=== PATIENT | male | born 1960 | race African-American/Black ===

== ENCOUNTER 2025-07-09 11:01 | Outpatient (AMB) | payer MEDICARE, MEDICAID, SELFPAY ==
[2025-07-09 11:03] VITALS: BP 100/62; PULSE 79; O2SAT 93; BMI 26.3
--- NOTE | 2025-07-09 11:03 | HO.NEPHOV_ITS ---
Vital Signs 07/09/25 11:03 Height 6 ft 1 in Weight 199 lb BMI 26.3 BP 100/62 Blood Pressure Location Lt brachial Position Sitting Pulse 79 Pulse Source Pulse Oximeter Pulse Oximetry (%) 93 Oxygen Delivery Method Room Air Intake Visit Reasons: ENP: [employer] Required: No Accompanied by: Self / Same As Patient Allergies No Known Allergies Allergy (Verified 07/09/25 11:07) Medication List - Last Reconciled 07/09/25 by Juan F Andre MD acetaminophen 1,000 mg PO Q6H PRN albuterol sulfate 90 mcg/actuation inhalation amlodipine 10 mg PO DAILY budesonide-formoterol 160-4.5 mcg/actuation inhalation cyclobenzaprine 5 mg PO TID PRN fluticasone propion-salmeterol 250-50 mcg/dose (Wixela Inhub) 1 ea inhalation BID gabapentin 600 mg PO BID HPI Comments Details: Brian is a 65 year old male presenting [facility]. His recent creatinine level was elevated at 2.17 in May 2025, corresponding eGFR of 33 ml/mt. This issue has been ongoing for at least two years, with a prior referral that the patient accidentally disregarded. He has a history of hypertension for many years, which he states is well- controlled. Other chronic conditions include COPD and sleep apnea. He is borderline diabetic but not on medication. 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 The patient was diagnosed with hepatitis C approximately 24-25 years ago, which has not been treated. He has a history of heroin and cocaine use, with his last use being about three years ago, and he is currently in a methadone program. He was a smoker since his teenage years, smoking about half a pack per day, but quit approximately 7-8 days ago. He took meloxicam 15 mg daily for about a year following his knee surgery but was taken off it due to his kidney function, and he no longer takes ibuprofen. His diet is reportedly unhealthy, with minimal vegetable intake. In terms of urologic symptoms, he reports nocturia, urinating four to five times some nights. He also notes intermittent swelling in his legs at the end of the day, which resolves with elevation. His mother was diabetic. His brother, who was also diabetic, had a blood cancer and required dialysis for kidney failure before passing away. He reports no other family history of kidney problems. Results - Lab results discussed: Creatinine was 2.17 in May, [facility] Medical History (Updated 07/09/25 @ 11:40 by Juan F Andre MD) Essential hypertension Gout Surgical History (Updated 07/09/25 @ 11:07 by ANTONIETTA Silva) History of total right knee replacement (~04/2024) H/O Spinal surgery H/O foot surgery (~2016) H/O colonoscopy (~2012) Review of Systems Const Denies fever(s) and Denies weight loss Card Denies chest pain Resp Denies cough and Denies hemoptysis GI Denies abdominal pain, Denies diarrhea and Denies nausea Musc Denies back pain Neuro Denies focal weakness Physical Exam Exam Exam: Physical Exam General: Awake. Comfortable. HENT: Neck supple. Mucosa moist. Pulmonary: Lungs aeration equal. No rales. Cardiology: Heart S1-S2 heard. No gallop. Abdomen: Soft. Non tender. Bowel sounds normal. Neurologic: No involuntary movements. No myoclonus. Numbness in hands persists. Extremities: No rash. Swelling noted in legs, particularly after wearing socks, likely due to amlodipine. Comfortable Neck supple no JVD. Lungs entry equal no rales. Heart S1-S2 heard no gallop or rub. Abdomen soft nontender. Neuro alert awake oriented. No asterixis. Extremities no edema. Results Reviewed Results Reviewed: May 2025 Cr 2.17 Assessment & Plan Assessment & Plan (1) CKD (chronic kidney disease) stage 3, GFR 30-59 ml/min: Code(s): N18.30 - Chronic kidney disease, stage 3 unspecified Category: Medical (2) HTN (hypertension): Code(s): I10 - Essential (primary) hypertension Category: Medical (3) Hepatitis C: Code(s): B19.20 - Unspecified viral hepatitis C without hepatic coma Category: Medical Plan Plan 1. Chronic Kidney Disease, Stage 3 - The patient's creatinine of 2.17 and GFR of 33% confirm a diagnosis of stage 3 CKD. - The etiology is likely multifactorial, with potential contributors including hypertension, prior NSAID use, history of hepatitis C, and past substance use - HEroin/Cocaine - The plan is to further investigate - Orders will be placed for blood work and a urine test to be completed today. - An order will be placed for a renal ultrasound. - The patient was counseled on dietary modifications, including reducing salt intake, staying hydrated, eating more fish and vegetables, and limiting red meat. - The goal is to maintain the patient at stage 3 CKD and prevent progression to dialysis. - A follow-up visit is scheduled for July to review the results. 2. HTN BP well controlled. NO changes made 3. Mild Peripheral Edema - The patient reports intermittent lower extremity swelling, more prominent at the end of the day, which could be related to his low kidney function or a side effect of his amlodipine. - As the swelling is not bothersome and resolves with rest, the plan is to monitor without intervention at this time. - Encouraged the patient's recent decision to quit smoking. - The patient is clear to travel to [place] and will have his ultrasound upon his return. . Orders: Orders Complete Blood Count Auto Diff Today N18.30 - Chronic kidney disease, stage 3 unspecified Comprehensive Met. Panel Today N18.30 - Chronic kidney disease, stage 3 unspecified Total Protein Urine Random Today N18.30 - Chronic kidney disease, stage 3 unspecified UA and rflx microscopic Today N18.30 - Chronic kidney disease, stage 3 unspecified Anti Glomerular Basement Memb Today N18.30 - Chronic kidney disease, stage 3 unspecified Complement C3 Today N18.30 - Chronic kidney disease, stage 3 unspecified Complement C4 Today N18.30 - Chronic kidney disease, stage 3 unspecified Protein Electrophoresis, Serum Today N18.30 - Chronic kidney disease, stage 3 unspecified DOMENICO Reflex Titer and Pattern Today N18.30 - Chronic kidney disease, stage 3 unspecified Neutrophil Cytoplasma Ab Today N18.30 - Chronic kidney disease, stage 3 unspecified Hepatitis B Core Antibody Today N18.30 - Chronic kidney disease, stage 3 unspecified Creatinine Urine Today N18.30 - Chronic kidney disease, stage 3 unspecified Hepatitis B Surface Antibody Today N18.30 - Chronic kidney disease, stage 3 unspecified Hepatitis C Antibody Reflex Today N18.30 - Chronic kidney disease, stage 3 unspecified Hepatitis B Surface Antigen Today N18.30 - Chronic kidney disease, stage 3 unsp ecified US renal BI Today N18.30 - Chronic kidney disease, stage 3 unspecified Coding Level of Care Code New Pt Level 4 (75803) Diagnoses CKD (chronic kidney disease) stage 3, GFR 30-59 ml/min N18.30 HTN (hypertension) I10 Hepatitis C B19.20
--- OUTSIDE RECORDS SUMMARY | 2025-07-09 14:30 | XMS_ITS ---
Author Name [facility] Organization Unknown Care Team Organization Name Specialty Phone Email Start Date End [facility] 03/12/2025
--- OUTSIDE RECORDS SUMMARY | 2025-07-09 14:31 | XMS_ITS | Encounter Summary ---
Author Organization [facility] Address [address] [place] [address] Care Team Providers Care Director Software Quality Assurance Name Role Phone Ricco Hoffmann MD Primary Care Provider [phone] Encounter Details Date Type Department Care Team (Late st Contact Info) Description 06/06/2025 Results Follow-Up Internal Medicine - [address] [phone] Ricco Hoffmann MD [address] [place] [phone] Social History Tobacco Use Types Packs/Day Years Used Date Smoking Tobacco: Every Day Cigarettes 0.5 49 Started: 1975 Smokeless Tobacco: Never Alcohol Use Standard Drinks/Week Comments No 0 (1 standard drink = 0.6 oz pur e alcohol) Sex and Gender Information Value Date Recorded Sex Assigned at Not on file Legal Sex Male 9:40 AM EST Gender Identity Not on file Sexual Orientation Not on file documented as of this encounter Functional Status * Are you deaf or do you have serious difficulty hearing? Answer Date of Assessment Author No 03/13/2025 8:19 PM EDT Veronika Elkins RN * Are you blind or do you have serious difficulty seeing, even when wearing glasses? Answer Date of Assessment Author No 03/13/2025 8:19 PM EDT Veronika Elkins RN * Do you have serious difficulty walking or climbing stairs? Answer Date of Assessment Author No 03/13/2025 8:19 PM EDT Veronika Elkins RN * Do you have serious difficulty dressing or bathing? Answer Date of Assessment Author No 03/13/2025 8:19 PM EDT Veronika Elkins RN * Because of a physical, mental, or emotional condition, do you have serious difficulty doing errandsalone such as visiting the doctor? Answer Date of Assessment Author No 03/13/2025 8:19 PM EDT Veronika Elkins RN documented as of this encounter Mental Status * Because of a physical, mental, or emotional condition, do you have serious difficulty concentrating, remembering, or making decisions? (5 years old or older) Answer Entry Date Author No 03/13/2025 8:19 PM EDT Veronika Elkins RN documented in this encounter Plan of Treatment Upcoming Encounters Date Type Department Care Team (Late st Contact Info) Description 07/10/2025 11:30 AM EST Office Visit Orthopedic Surgery [place] [phone] [phone] Delta Brown MD [address] [address] documented as of this encounter Goals Goal Patient Goal Type Associated Problems Recent Progress Patient-Stated? Author LTGs in 8 visits General No Brian Moore, PT Note: Pt will ambulate x6 minutes without AD with no right knee pain Pt will manage 4 stesp with reciprocal stepping pattern without right knee pain Pt will increase right knee PROM to 0-120 degrees Pt will increase right knee AROM to 0-115 degrees Pt will increase right knee strength to 5/5 Pt will be independent with HEP documented as of this encounter Visit Diagnoses Not on filedocumented in this encounter Care Teams Director Software Quality Assurance Relationship Specialty Start Date End Date Ricco Hoffmann MD [address] [place] [id number] PCP - General Internal Medicine 05/18/24 documented as of this encounter
--- OUTSIDE RECORDS SUMMARY | 2025-07-09 14:31 | XMS_ITS | Clinical Summary ---
Author Organization [facility] Address [address] [place] [address] Phone Care Team Providers Care Business Consultant Name Role Phone Ricco Hoffmann MD Primary Care Provider [phone] Allergies No known active allergies Medications lactose-reduce d food (ENSURE ACTIVE CLEAR ORAL) Take 1 Can by mouth 1 (one) time each day. 05/17/20 23 Active baclofen (LIORESAL) 10 mg tablet Take 1 tablet (10 mg total) by mouth 3 (three) times a day. Active acetaminophen (TYLENOL) 500 mg tabletIndicati ons:Status post total knee replacement, right Take 2 tablets (1,000 mg total) by mouth every 8 (eight) hours if needed for mild pain. 60 tablet 06/03/20 24 Active cefadroxil 500 mg capsule 05/14/20 24 Active Stool Softener-Laxat nasra 8.6-50 mg per tablet 05/14/20 24 Active traZODone (DESYREL) 50 mg tablet Take 1 tablet (50 mg total) by mouth at bedtime. 03/15/20 24 Active pramipexole (MIRAPEX) 0.25 mg tablet TAKE 1 TABLET BY MOUTH TWICE A DAY NEEDED FOR RESTLESS LEGS 02/05/20 24 Active methadone (DOLOPHINE) 10 mg/5 mL solution Take 22.5 mL (45 mg total) by mouth. Active hydrocortisone 0.5 % topical creamIndicatio ns:Status post total knee replacement, right Apply topically 2 (two) times a day. 30 g 06/27/20 24 Active ondansetron (ZOFRAN) 4 mg tablet Take 1 tablet (4 mg total) by mouth 3 (three) times a day if needed. 06/27/20 24 Active aspirin 81 mg EC tablet Take 1 tablet (81 mg total) by mouth 1 (one) time each day. 90 tablet 1 10/09/19 25 Active Additional Information Patient not taking.Reported on 06/05/2025 triamcinolone (KENALOG) 0.1 % cream APPLY TO AFFECTED AREA 1-2 TIMES DAILY NEEDED. AVOID FACE AND GROIN. 80 g 11/01/19 25 Active fluticasone-sa lmeterol (ADVAIR DISKUS) 250-50 mcg/dose diskus inhalerIndicat ions:Wheeze,Cu rrent smoker,Dyspnea on exertion Inhale 1 puff by mouth 2 (two) times a day. Rinse mouth with water after use to reduce aftertaste and incidence of candidiasis. Do not swallow. 3 each 11/20/19 25 Active albuterol HFA (PROAIR HFA ; PROVENTIL HFA ; VENTOLIN HFA) 90 mcg/actuation inhalerIndicat ions:Wheeze INHALE 2 PUFFS BY MOUTH EVERY 4 (FOUR) HOURS IF NEEDED FOR WHEEZING OR SHORTNESS OF BREATH. 18 each 1 02/12/20 25 026 Active amLODIPine (NORVASC) 10 mg tablet TAKE 1 TABLET BY MOUTH EVERY DAY 90 tablet 1 02/18/20 25 Active budesonide-for moteroL (SYMBICORT) 160-4.5 mcg/actuation inhalerIndicat ions:Wheeze INHALE 2 PUFFS BY MOUTH 2 (TWO) TIMES A DAY. RINSE MOUTH WITH WATER AFTER USE TO REDUCE AFTERTASTE AND INCIDENCE OF CANDIDIASIS. DO NOT SWALLOW. 10.2 each 03/07/20 25 Active acetaminophen (Tylenol Extra Strength) 500 mg tabletIndicati ons:Status post total right knee replacement,St atus post total knee replacement, right Take 2 tablets (1,000 mg total) by mouth every 8 (eight) hours. 100 tablet 1 03/31/20 25 Active cyclobenzaprin e (FLEXERIL) 5 mg tablet Take 1 tablet (5 mg total) by mouth 3 (three) times a day if needed for muscle spasms. 30 tablet 1 06/05/20 25 Active gabapentin (NEURONTIN) 300 mg capsuleIndicat ions:Status post total knee replacement, right TAKE 2 CAPSULES BY MOUTH 3 TIMES A DAY 180 capsule 1 06/24/20 25 Active gabapentin (NEURONTIN) 300 mg capsuleIndicat ions:Status post total knee replacement, right Take 2 capsules (600 mg total) by mouth 3 (three) times a day. 180 each 1 03/31/20 25 025 Discontinued Active Problems Problem Noted Date Diagnosed Date Chronic obstructive pulmonary disease 06/05/2025 Sleep apnea 06/05/2025 Lumbar radicular pain 06/05/2025 Status post total right knee replacement 024 Hepatic fibrosis 04/23/[address] [facility] compl of internal fixation device of oth abrahan rochelle, subs 04/23/2024 Neck pain with history of cervical spinal surger y 04/23/2024 Other chronic postprocedural pain 04/23/2024 Primary osteoarthritis of right knee 03/06/2024 Postlaminectomy syndrome, not elsewhere classifi ed 03/08/2021 Pseudoarthrosis of cervical spine 01/20/2021 Nicotine dependence, cigarettes, uncomplicated 0 07/24/2020 Neuropathy, arm, left 06/05/2019 Liver fibrosis 08/06/2018 Cortical cataract of left eye 08/20/2014 Nuclear sclerosis 08/20/2014 Hypertension 06/11/2012 Hemorrhoids 05/11/2009 Chronic back pain 08/20/2008 Overview (04/23/2024): Hx spinal fusion Encounters Date Type Department Care Team Description 06/06/2025 Results Follow-Up Internal Medicine - [address] [phone] Ricco Hoffmann MD 06/05/2025 1:30 PM EST Lab Draw Station - [address] Primary hypertension; Pre-diabetes 06/05/2025 1:15 PM EST Office Visit Internal Medicine - [address] [phone] Ricco Hoffmann MD Chronic obstructive pulmonary disease, unspecified COPD type (CMS/HCC V24, CMS/HCC V28) (Primary Dx); Immunization due; Sleep apnea, unspecified type; Lumbar radicular pain; Primary hypertension; Pre-diabetes 05/27/2025 Telephone Internal Medicine - [address] [phone] Ricco Hoffmann MD 05/24/2025 Telephone Internal Medicine - [address] [phone] Ricco Hoffmann MD 05/08/2025 Telephone Orthopedic Surgery - [place] [address] [facility] [address] [place] [address] Rachel Saldana from Last 3 Months Immunizations Immunization Administration Dates Next Due Hepatitis B (Pdgfugy-J-Eycmt , Recombivax HB-Adult) 19yo and older 07/26/2012,06/20/2012 Influenza trivalent, 0.5mL, preservative free (Fluarix; FluLaval; Fluzone) ages 6mo and older (Afluria) 3 years and older 04/16/2024 Influenza trivalent, MDCK, 0 .5mL, preservative free (Flucelvax) 6mo and older 06/05/2025 Influenza trivalent, with pr eservative (Fluzone; Afluria) 6mo and older 05/20/2023,06/20/2012 RSV, bivalent, protein subun it RSVpreF, 0.5mL, Preservative Free (ABRYSVO) 50yo and older or 32 through 36 wks of 10/09/2024 Tdap Tetanus diptheria acell ular pertussis (Boostrix; Adacel) 7yo and older 09/03/2008 Surgical History Surgery Date Site/Laterality Comments OTHER SURGICAL HISTORY 2001 PROCEDURE: [place] ARTHRODESIS POSTERIOR SPINAL DFRM <6 VRT SGM COLONOSCOPY 07/25/12 PROCEDURE: HISTORICAL COLONOSCOPY; COMMENT: hemorrhoids; repeat in ten yrs FOOT SURGERY 2016 PROCEDURE: HISTORICAL FOOT SURGERY; COMMENT: broke left ankle in [place] Medical History Medical History Date Comments Unspecified essential hypertension DX:Unspecified essential hypertension Gout DX:Gout Family History Medical History Relation Name Comments No Known Problems Brother 1 No Known Problems Brother 2 No Known Problems Brother 3 No Known Problems Brother 4 No Known Problems Daughter No Known Problems Father No Known Problems Mother No Known Problems Other No Known Problems Sister No Known Problems Son Autoimmune disease Neg Hx Blindness Neg Hx Cataract, glauc [place], macular degeneration, strabismus Breast cancer Neg Hx Colon cancer Neg Hx Coronary artery disease Neg Hx Diabetes Neg Hx Heart attack Neg Hx Heart failure Neg Hx Hyperlipidemia Neg Hx Hypertension Neg Hx Mental illness Neg Hx Prostate cancer Neg Hx Sleep apnea Neg Hx Thyroid disease Neg Hx Relation Name Status Comments Brother 1 Alive Brother 2 Alive HTN Brother 3 Brother 4 Daughter Father Mother Alive HTN Other Sister Alive HTN Son Social History Tobacco Use Types Packs/Day Years Used Date Smoking Tobacco: Every Day Cigarettes 0.5 49 Started: 1975 Smokeless Tobacco: Never Tobacco Cessation:Ready to Q uit: Not Asked; Counseling Given: Not Answered Alcohol Use Standard Drinks/Week Comments No 0 (1 standard drink = 0.6 oz pur e alcohol) Sex and Gender Information Value Date Recorded Sex Assigned at Not on file Legal Sex Male 9:40 AM EST Gender Identity Not on file Sexual Orientation Not on file Last Filed Vital Signs Vital Sign Reading Time Taken Comments Blood Pressure 112/76 06/05/2025 1:12 PM EST Pulse 64 06/05/2025 1:12 PM EST Temperature 37.1 C (98.8 F) 03/13/2025 8:19 PM EDT Respiratory Rate 21 03/13/2025 8:19 PM EDT Oxygen Saturation 95% 03/13/2025 8:19 PM EDT Inhaled Oxygen Concentration - - Weight 87.5 kg (192 lb 12.8 oz) 06/05/2025 1:12 PM EST Height 188 cm (6' 2 ) 06/05/2025 1:12 PM EST Body Mass Index 24.75 06/05/2025 1:12 PM EST Plan of Treatment Upcoming Encounters Date Type Department Care Team (Late st Contact Info) Description 07/10/2025 11:30 AM EST Office Visit Orthopedic Surgery - [place] [phone] [phone] Delta Brown MD [address] [address] Health Maintenance Due Date Last Done Comments Colorectal Cancer Screening: Colonoscopy 1961 Pneumococcal Vaccine: 50+ Years (1 of 2 - PCV) 1980 Zoster Vaccines (1 of 2) 2011 Hepatitis B Vaccines (3 of 3 - 19+ 3-dose series) 12/18/2012 07/26/2012, 06/20/2012 DTaP,Tdap,and Td Vaccines (2 - Td or Tdap) 09/03/2018 09/03/2008 HIV Screening 07/02/2022 Lung Cancer Screening (Low Dose CT) 07/02/2022 Medicare Annual Wellness Visit 07/02/2022 Social Influencers of Health Screening 07/02/2022 Depression Screening 07/24/2024 COVID-19 Vaccine ( - 2024- season) 2025 Hypertension/CHF/CAD Annual BMP Blood Test 06/05/2026 06/05/2025, 03/13/2025, 04/16/2024, Additional history exists Cholesterol Screening (Lipid Panel) 06/05/2030 06/05/2025, 02/28/2024, 02/28/2024 Hepatitis C Screening Completed 08/05/2018 RSV Immunization Adult Patients Completed 10/09/2024 Influenza Vaccine Completed 06/05/2025, , 05/20/2023, Additional history exists HIB Vaccines Aged Out No longer eligi ble based on patient's age to complete this topic HPV Vaccines Aged Out No longer eligi ble based on patient's age to complete this topic Hepatitis A Vaccines Aged Out No long er eligible based on patient's age to complete this topic IPV Vaccines Aged Out No longer eligi ble based on patient's age to complete this topic MMR Vaccines Aged Out No longer eligi ble based on patient's age to complete this topic Meningococcal ACWY Vaccine Aged Out N o longer eligible based on patient's age to complete this topic Meningococcal B Vaccine Aged Out No l onger eligible based on patient's age to complete this topic RSV Immunization Patients Under 20 months Aged Out No longer eligible based on patient's age to complete this topic Varicella Vaccines Aged Out No longer eligible based on patient's age to complete this topic Goals Goal Patient Goal Type Associated Problems Recent Progress Patient-Stated? Author LTGs in 8 visits General No Asim Moore, PT Note: Pt will ambulate x6 minutes without AD with no right knee pain Pt will manage 4 stesp with reciprocal stepping pattern without right knee pain Pt will increase right knee PROM to 0-120 degrees Pt will increase right knee AROM to 0-115 degrees Pt will increase right knee strength to 5/5 Pt will be independent with HEP Procedures Procedure Name Priority Date/Time Associated Diagnosis Comments BASIC METABOLIC PANEL Routine 06/05/2025 1:26 PM EST Primary hypertension ASPARTATE AMINOTRANSFERASE Routine 06/05/2025 1:26 PM EST Primary hypertension ALANINE AMINOTRANSFERASE Routine 025 1:26 PM EST Primary hypertension HEMOGLOBIN A1C Routine 06/05/2025 1:26 PM EST Pre-diabetes LIPID PANEL WITH REFLEX TO DIRECT LDL Routine 06/05/2025 1:26 PM EST Primary hypertension HEPATITIS C SCREENING Routine 08/05/2018 from Last 3 Months or Most Recently Relevant to Health Maintenance Results * (ABNORMAL) Lipid panel with reflex to direct LDL (06/05/2025 1:26 PM EST) Cholesterol 174 0 - 200 mg/dL LAB CHEMISTRY METHOD 06/05/2025 4:57 PM [facility] Triglycerides 73 0 - 150 mg/dL LAB CHEMISTRY METHOD 06/05/2025 4:57 PM [facility] HDL 51 >=40 mg/dL LAB CHEMISTRY METHOD 06/05/2025 4:57 PM [facility] LDL Calculated 108(H) 0 - 100 mg/dL LAB CHEMISTRY METHOD 06/05/2025 4:57 PM [facility] Comment:Estimated LDL Calcul ated using equation: Total cholesterol - HDL cholesterol - (Triglycerides/5) VLDL Cholesterol Neil 14.6 mg/dL LAB CHEMISTRY METHOD 06/05/2025 4:57 PM [facility] Non HDL Chol. (LDL+VLDL) 123 <145 mg/dL LAB CHEMISTRY METHOD 06/05/2025 4:57 PM EST [facility] Chol/HDL Ratio 3.4 0.0 - 4.4 LAB CHEMISTRY METHOD 06/05/2025 4:57 PM EST [facility] Blood Venous blood specimen / Unknown Venipuncture / Unknown 06/05/2025 1:26 PM EST 06/05/2025 1:26 PM EST us Ricco Hoffmann MD LAB BLOOD ORDERABLES Final Res ult Performing Organization Address [facility]/ZIP Co de Phone Number [facility] [address] [place] [address], [place] [phone] * Alanine aminotransferase (06/05/2025 1:26 PM EST) ALT (SGPT) 26 10 - 60 unit/L LAB CHEMISTRY METHOD 06/05/2025 4:56 PM EST [facility] Blood Venous blood specimen / Unknown Venipuncture / Unknown 06/05/2025 1:26 PM EST 06/05/2025 1:26 PM EST us Ricco Hoffmann MD LAB BLOOD ORDERABLES Final Res ult Performing Organization Address [facility]/ZIP Co de Phone Number [facility] [address] [place] [address], [place] [phone] * Aspartate aminotransferase (06/05/2025 1:26 PM EST) AST (SGOT) 16 10 - 42 unit/L LAB CHEMISTRY METHOD 06/05/2025 4:56 PM EST [facility] Blood Venous blood specimen / Unknown Venipuncture / Unknown 06/05/2025 1:26 PM EST 06/05/2025 1:26 PM EST us Ricco Hoffmann MD LAB BLOOD ORDERABLES Final Res ult [facility] [address] [place] [address], [place] [phone] * Hemoglobin A1c (06/05/2025 1:26 PM EST) [facility] Hemoglobin A1C 6.2 <6.5 % LAB CHEMISTRY METHOD 06/05/2025 8:44 PM EST [facility] Mean Bld Glu Estim. 131 mg/dL LAB CHEMISTRY METHOD 06/05/2025 8:44 PM [facility] Blood Venous blood specimen / Unknown Venipuncture / Unknown 06/05/2025 1:26 PM EST 06/05/2025 1:26 PM EST Ricco Hoffmann MD LAB BLOOD ORDERABLES Final Res ult Performing Organization Address [facility]/ZIP Co de Phone Number [facility] [address] [place] [address], [place] [phone] * (ABNORMAL) Basic metabolic panel (06/05/2025 1:26 PM EST) [facility] Sodium 140 133 - 145 mmol/L LAB CHEMISTRY METHOD 06/05/2025 4:58 PM [facility] Potassium 4.2 3.5 - 5.5 mmol/L LAB CHEMISTRY METHOD 06/05/2025 4:58 PM [facility] Chloride 109 96 - 110 mmol/L LAB CHEMISTRY METHOD 06/05/2025 4:58 PM [facility] CO2 26 21 - 32 mmol/L LAB CHEMISTRY METHOD 06/05/2025 4:58 PM [facility] Anion Gap 5 3 - 11 LAB CHEMISTRY METHOD 06/05/2025 4:58 PM [facility] Glucose 93 70 - 100 mg/dL LAB CHEMISTRY METHOD 06/05/2025 4:58 PM [facility] BUN 31(H) 5 - 25 mg/dL LAB CHEMISTRY METHOD 06/05/2025 4:58 PM EST [facility] Creatinine 2.17(H) 0.70 - 1.30 mg/dL LAB CHEMISTRY METHOD 06/05/2025 4:58 PM [facility] eGFR 33(L) >=60 mL/min/1. 73m2 LAB CHEMISTRY METHOD 06/05/2025 4:58 PM EST [facility] Comment:Calculation based on the Chronic Kidney Disease Epidemiology Collaboration (CKD-EPI) equation refit without adjustment for race. BUN/Creatinine Ratio 14.3 LAB CHEMISTRY METHOD 06/05/2025 4:58 PM [facility] Calcium 9.2 8.5 - 10.5 mg/dL LAB CHEMISTRY METHOD 06/05/2025 4:58 PM [facility] Blood Venous blood specimen / Unknown Venipuncture / Unknown 06/05/2025 1:26 PM EST 06/05/2025 1:26 PM EST Ricco Hoffmann MD LAB BLOOD ORDERABLES Final Res ult [facility] [address] [place] [address], * Hepatitis C Screening (08/05/2018) Hepatitis C Screening abstracted Historical Provider HEALTH MAINTENANCE Final Result from Last 3 Months or Most Recently Relevant to Health Maintenance Insurance [place]ICA[place] - [place] MEDICARE Advance Directives Documents on File Type Date Recorded 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
== END 2025-07-09 11:35 | disposition home or self-care (01) ==
LOC: HO.HKAS 11:01
PROVIDERS: PCP Internal Medicine; Referring Provider Internal Medicine; Visit Provider Internal Medicine Hypertension Specialist
DX: N18.30 Chronic kidney disease, stage 3 unspecified (principal); I10 Essential (primary) hypertension; B19.20 Unspecified viral hepatitis C without hepatic coma
CPT/HCPCS: 99204

== ENCOUNTER 2025-07-09 11:01 | Outpatient (REF) | payer MEDICARE, MEDICAID, SELFPAY ==
[2025-07-09 14:16] LABS: MANUAL DIFF FLAG NO
[2025-07-09 14:28] LABS: Hematocrit 36.8 % (42.0-52.0); Hemoglobin 12.0 g/dl (14.0-18.0); Imm Gran Abs Auto 0.02 X10*3/uL (0.00-0.03); Imm Gran Pct Auto 0.3 % (0.0-0.4); Lymphocytes Absolute Auto 2.6 X10*3/uL (1.2-4.9); Mean Corpuscular HGB Conc 32.6 g/dl (31.0-36.0); Mean Corpuscular Hemoglobin 30.8 pg (27.0-33.0); Mean Corpuscular Volume 94.4 fL (80.0-98.0); NRBC Abs Auto 0.000 X10*3/uL (0.0-0.012); NRBC Pct Auto 0.0 /100WBC (0.0-0.2); Platelet Count 199 X10*3/uL (160-400); Red Blood Count 3.90 X10*6/uL (4.60-5.80); White Blood Count 6.8 X10*3/uL (4.8-10.8)
[2025-07-09 14:30] LABS: Appearance Urine Cloudy; Glucose Urine UA Negative (Negative); PH 5.5 (5.0-9.0); Specific Gravity - Urine 1.025 (1.005-1.025); UMIC TRIGGER UA YES
[2025-07-09 15:01] LABS: Alanine Aminotransferase 18 U/L (0-40); Albumin Level 4.3 g/dL (3.5-5.0); Alkaline Phosphatase 135 U/L (39-117); Anion Gap 11 (12-20); Aspartate Amino Transferase 27 U/L (5-37); Blood Urea Nitrogen 19 mg/dL (9-16); Calcium 9.1 mg/dL (8.4-10.2); Carbon Dioxide 26 mmol/L (22-29); Chloride 107 mmol/L (96-108); Estimated Glomerular Filt Rate 32; Potassium 4.4 mmol/L (3.3-5.1); Sodium 140 mmol/L (135-145); Total Protein 8.0 g/dL (6.5-8.0)
--- OUTSIDE RECORDS SUMMARY | 2025-07-09 15:24 | XMS_ITS | Encounter Summary ---
Author Organization [facility] Prior to 05/24/[address] [place] [address] Care Team Providers Care Consultant Name Role Phone Ricco Hoffmann MD Primary Care Provider [phone] Reason for Visit * Reason Comments E-prescribe Rx Request Encounter Details Date Type Department Care Team Description 11/06/2019 Refill Adult Medicine - [address] [address] Ricco Hoffmann MD [address] [place] [address] E-prescribe Rx Request Social History Tobacco Use Types Packs/Day Years Used Date Smoking Tobacco: Every Day Cigarettes 0.8 Smokeless Tobacco: Never Comments:approx 15 cigs hannah y Alcohol Use Standard Drinks/Week Comments No 0 (1 standard drink = 0.6 oz pur e alcohol) Sex Assigned at Date Recorded Not on file documented as of this encounter Miscellaneous Notes * Telephone Encounter - Karishma Chapman M.A. - 11/07/2019 12:54 PM EDT Patient has audio visit tomorrow * Telephone Encounter - Ricco Hoffmann MD - 11/06/2019 2:27 PM EDT pls schedule tele visit with wi * Telephone Encounter - Karishma Chapman M.A. - 11/06/2019 2:17 PM EDT Last seen 06/05/19 Lab Results Component Value Date NA 142 06/05/2019 K 3.7 06/05/2019 CO2 24 06/05/2019 CL 111 06/05/2019 BUN 9 06/05/2019 CREAT 0.93 06/05/2019 GLU 79 06/05/2019 CA 9.6 06/05/2019 GFR > 60 06/05/2019 * Telephone Encounter - Mitzi Conte - 11/06/2019 12:13 PM EDT Patient would like script to be: E-PRESCRIBED/FAXED TO PHARMACY WHEN WAS THE PATIENT'S LAST APPOINTMENT IN ADULT MEDICINE? 06/05/19 WHEN WAS THE LAST TIME THE PATIENT SAW THEIR PCP? Same as above Does patient have an upcoming appointment? No but the appt letter was mailed. (THE MEDICATION REQUESTED IS ON THE MED LIST ABOVE) All of the medications requested were on the CURRENT MEDS list Did you check the Pharmacy information above?: YES Patient wants: 90-day supply Is this a mail order prescription request ? NO If the refill is from a FAXED refill request what is the RX # listed on the fax? N/A Patients current insurance carrier is: [place] / [place] / Product Type: MEDICARE [id number] documented in this encounter Plan of Treatment Not on file documented as of this encounter Visit Diagnoses Diagnosis Liver fibrosis Cirrhosis of liver without mention of alcohol documented in this encounter Care Teams Consultant Relationship Specialty Start Date End Date Ricco Hoffmann MD [address] [place] [address] PCP - General 08/15/08 documented as of this encounter
--- OUTSIDE RECORDS SUMMARY | 2025-07-09 15:24 | XMS_ITS | Encounter Summary ---
Author Organization [facility] Prior to 05/24/[address] [place] [address] Care Team Providers Care Trade Show Specialist Name Role Phone Ricco Hoffmann MD Primary Care Provider [phone] Encounter Details Date Type Department Care Team Description 08/30/2018 Telephone Gastroenterology - [place] 175 [facility] [address] [place] [phone] Reinier Weiss MD [address] [place] [address] Social History Tobacco Use Types Packs/Day Years Used Date Smoking Tobacco: Every Day Cigarettes 0.8 Smokeless Tobacco: Never Comments:approx 15 cigs hannah y Alcohol Use Standard Drinks/Week Comments No 0 (1 standard drink = 0.6 oz pur e alcohol) Sex Assigned at Date Recorded Not on file documented as of this encounter Miscellaneous Notes * Telephone Encounter - Krupa Parker - 08/30/2018 9:22 AM EST All attempts to reach patient to schedule GI appointment have been exhausted. documented in this encounter Plan of Treatment Not on file documented as of this encounter Visit Diagnoses Not on filedocumented in this encounter Care Teams Trade Show Specialist Relationship Specialty Start Date End Date Ricco Hoffmann MD [address] [place] [address] PCP - General 08/15/08 documented as of this encounter
--- OUTSIDE RECORDS SUMMARY | 2025-07-09 15:24 | XMS_ITS | Encounter Summary ---
Author Organization [facility] Prior to 05/24/[address] [place] [address] Care Team Providers Care Transmission Repairer Name Role Phone Ricco Hoffmann MD Primary Care Provider [phone] Encounter Details Date Type Department Care Team Description 07/25/2012 Business Doc Medical Records [address] [place] [address] Abstract, Provider Social History Tobacco Use Types Packs/Day Years Used Date Smoking Tobacco: Every Day Cigarettes 0.5 Comments:1/2 pack daily Alcohol Use Standard Drinks/Week Comments No 0 (1 standard drink = 0.6 oz pur e alcohol) Sex Assigned at Date Recorded Not on file documented as of this encounter Plan of Treatment Not on file documented as of this encounter Visit Diagnoses Not on filedocumented in this encounter Care Teams Transmission Repairer Relationship Specialty Start Date End Date Ricco Hoffmann MD [address] [place] [address] PCP - General 08/15/08 documented as of this encounter
--- OUTSIDE RECORDS SUMMARY | 2025-07-09 15:24 | XMS_ITS | Encounter Summary ---
Author Organization [facility] Prior to 05/24/[address] [place] [address] Care Team Providers Care Kaiawhina Kohanga Reo Name Role Phone Ricco Hoffmann MD Primary Care Provider [phone] Reason for Visit * Reason Comments E-prescribe Rx Request Encounter Details Date Type Department Care Team Description 10/13/2019 Refill Adult Medicine - [address] [address] Ricco Hoffmann MD [address] [place] [address] E-prescribe Rx Request Social History Tobacco Use Types Packs/Day Years Used Date Smoking Tobacco: Every Day Cigarettes 0.8 Smokeless Tobacco: Never Comments:approx 15 cigs hannah y Alcohol Use Standard Drinks/Week Comments No 0 (1 standard drink = 0.6 oz pur e alcohol) Sex Assigned at Date Recorded Not on file documented as of this encounter Miscellaneous Notes * Telephone Encounter - Brittny Espinoza - 10/14/2019 3:39 PM EDT [place] 06/05/19 Lab Results Component Value Date NA 142 06/05/2019 K 3.7 06/05/2019 CO2 24 06/05/2019 CL 111 06/05/2019 BUN 9 06/05/2019 CREAT 0.93 06/05/2019 GLU 79 06/05/2019 CA 9.6 06/05/2019 GFR > 60 06/05/2019 Lab Results Component Value Date CHOL 184 06/05/2019 LDL 128 06/05/2019 HDL 46 06/05/2019 TRIG 52 06/05/2019 SGOT 18 06/05/2019 SGPT 15 06/05/2019 * Telephone Encounter - Mitzi Conte - 10/14/2019 3:32 PM EDT Patient would like script to be: E-PRESCRIBED/FAXED TO PHARMACY WHEN WAS THE PATIENT'S LAST APPOINTMENT IN ADULT MEDICINE? 06/05/19 WHEN WAS THE LAST TIME THE PATIENT SAW THEIR PCP? Same as above Does patient have an upcoming appointment? No but the appt letter was mailed (THE MEDICATION REQUESTED IS ON THE MED LIST ABOVE) All of the medications requested were on the CURRENT MEDS list Did you check the Pharmacy information above?: YES Patient wants: 30 -day supply Is this a mail order prescription request ? NO If the refill is from a FAXED refill request what is the RX # listed on the fax? N/A Patients current insurance carrier is: [place] / [place] / Product Type: MEDICARE [id number] documented in this encounter Plan of Treatment Not on file documented as of this encounter Visit Diagnoses Diagnosis Liver fibrosis Cirrhosis of liver without mention of alcohol documented in this encounter Care Teams Kaiawhina Kohanga Reo Relationship Specialty Start Date End Date Ricco Hoffmann MD [address] [place] [address] PCP - General 08/15/08 documented as of this encounter
--- OUTSIDE RECORDS SUMMARY | 2025-07-09 15:24 | XMS_ITS | Encounter Summary ---
Author Organization [facility] Prior to 05/24/[address] [place] [address] Care Team Providers Care Telemedicine Physician Name Role Phone Ricco Hoffmann MD Primary Care Provider [phone] Encounter Details Date Type Department Care Team Description 2024 Orders Only Medical Records [address] [place] [address] Ricco Hoffmann MD [address] [place] [address] [phone] Social History Tobacco Use Types Packs/Day Years Used Date Smoking Tobacco: Every Day Cigarettes 0.8 Smokeless Tobacco: Never Comments:approx 15 cigs hannah y Alcohol Use Standard Drinks/Week Comments No 0 (1 standard drink = 0.6 oz pur e alcohol) Sex Assigned at Date Recorded Not on file documented as of this encounter Plan of Treatment Not on file documented as of this encounter Procedures Procedure Name Priority Date/Time Associated Diagnosis Comments CO ECG ROUTINE ECG W/LEAST 1 2 LDS W/I&R Routine 04/16/2024 documented in this encounter Results * CO ECG ROUTINE ECG W/LEAST 12 LDS W/I&R (04/16/2024) Ricco Hoffmann MD CARDIOLOGY [facility] documented in this encounter Visit Diagnoses Not on filedocumented in this encounter Care Teams Telemedicine Physician Relationship Specialty Start Date End Date Ricco Hoffmann MD [address] [place] [address] PCP - General 08/15/08 documented as of this encounter
--- OUTSIDE RECORDS SUMMARY | 2025-07-09 15:24 | XMS_ITS | Encounter Summary ---
Author Organization [facility] Prior to 05/24/[address] [place] [address] Care Team Providers Care Director Of Quality Improvement Name Role Phone Ricco Hoffmann MD Primary Care Provider [phone] Encounter Details Date Type Department Care Team Description 12/25/2023 Orders Only Medical Records [address] [place] [address] Chad Rodriguez MD Social History Tobacco Use Types Packs/Day Years [...] Procedure Name Priority Date/Time Associated Diagnosis Comments OUTSIDE PLAIN FILM Routine 12/23/2023 documented in this encounter Results * OUTSIDE PLAIN FILM (12/23/2023) Chad Rodriguez MD RADIOLOGY documented in this encounter Visit Diagnoses Not on filedocumented in this encounter Care Teams Director Of Quality Improvement Relationship Specialty Start Date End Date Ricco Hoffmann MD [address] [place] [address] PCP - General 08/15/08 documented as of this encounter
--- OUTSIDE RECORDS SUMMARY | 2025-07-09 15:24 | XMS_ITS | Encounter Summary ---
Author Organization [facility] Prior to 05/24/[address] [place] [address] Care Team Providers Care Subscription Agent Name Role Phone Ricco Hoffmann MD Primary Care Provider [phone] Encounter Details Date Type Department Care Team Description 03/05/2012 Hardwood Faller Report Medical Records [address] [place] [address] Sina Bowen MD Social History Tobacco Use Types Packs/Day [...] on filedocumented in this encounter Care Teams Subscription Agent Relationship Specialty Start Date End Date Ricco Hoffmann MD [address] [place] [address] PCP - General 08/15/08 documented as of this encounter
--- OUTSIDE RECORDS SUMMARY | 2025-07-09 15:24 | XMS_ITS | Encounter Summary ---
Author Organization [facility] Prior to 05/24/[address] [place] [address] Care Team Providers Care Tetryl Dissolver Operator Name Role Phone Ricco Hoffmann MD Primary Care Provider Encounter Details Date Type Department Care Team Description 05/21/2024 Telephone [facility] [address] [facility] [address] [place] [phone] Delta Brown MD [address] [facility] [address] [place] [address] Social History Tobacco Use Types Packs/Day Years Used Date Smoking Tobacco: Every Day Cigarettes 0.8 Smokeless Tobacco: Never Comments:approx 15 cigs hannah y Alcohol Use Standard Drinks/Week Comments No 0 (1 standard drink = 0.6 oz pur e alcohol) Sex Assigned at Date Recorded Not on file documented as of this encounter Miscellaneous Notes * Telephone Encounter - Nilam Calix NP - 05/22/2024 8:40 AM EDT Refill for oxycodone sent to [facility] documented in this encounter Plan of Treatment Not on file documented as of this encounter Visit Diagnoses Not on filedocumented in this encounter Care Teams Tetryl Dissolver Operator Relationship Specialty Start Date End Date Ricco Hoffmann MD [address] [place] [address] PCP - General 1/23/09 documented as of this encounter
--- OUTSIDE RECORDS SUMMARY | 2025-07-09 15:24 | XMS_ITS | Encounter Summary ---
Author Organization [facility] Prior to 05/24/[address] [place] [address] Care Team Providers Care Automotive Glass Mechanic Name Role Phone Ricco Hoffmann MD Primary Care Provider [phone] Encounter Details Date Type Department Care Team Description 05/13/2024 [facility] Medical Records [address] [place] [address] [place] [address] Social History Tobacco Use Types Packs/Day Years [...] on filedocumented in this encounter Care Teams Automotive Glass Mechanic Relationship Specialty Start Date End Date Ricco Hoffmann MD [address] [place] [address] PCP - General 08/15/08 documented as of this encounter
--- OUTSIDE RECORDS SUMMARY | 2025-07-09 15:24 | XMS_ITS | Encounter Summary ---
Author Organization [facility] Prior to 05/24/[address] [place] [address] Care Team Providers Care Forge Operator Name Role Phone Ricco Hoffmann MD Primary Care Provider [phone] Reason for Visit * Reason Onset Date Comments Testing 01/01/2019 Encounter Details Date Type Department Care Team Description 01/01/2019 Telephone Radiology - [address] [address] Elisa Mensah FNP Testing Social History Tobacco Use Types Packs/Day Years Used Date Smoking Tobacco: Every Day Cigarettes 0.8 Smokeless Tobacco: Never Comments:approx 15 cigs hannah y Alcohol Use Standard Drinks/Week Comments No 0 (1 standard drink = 0.6 oz pur e alcohol) Sex Assigned at Date Recorded Not on file documented as of this encounter Miscellaneous Notes * Telephone Encounter - Cha Hough M.A. - 01/01/2019 4:21 PM EDT Ordering provider is no longer with the practice. Please send to PCP. * Telephone Encounter - Mandy Lewis - 01/01/2019 10:13 AM EDT FYI:Brian Lau has not responded to the telephone calls that were made as well as the letter that was sent to schedule a US SOFT TISSUE ABDOMEN Therefore we are removing the test from our Scheduled Orders Report. Please note that this test must be reordered if required in the future. Thank you, Mandy Radiology documented in this encounter Plan of Treatment Not on file documented as of this encounter Visit Diagnoses Not on filedocumented in this encounter Care Teams Forge Operator Relationship Specialty Start Date End Date Ricco Hfofmann MD [address] [place] [address] PCP - General 08/15/08 documented as of this encounter
--- OUTSIDE RECORDS SUMMARY | 2025-07-09 15:25 | XMS_ITS | Encounter Summary ---
Author Organization [facility] Prior to 05/24/[address] [place] [address] Care Team Providers Care Oral Health Therapist Name Role Phone Ricco Hoffmann MD Primary Care Provider [phone] Reason for Visit * Reason Onset Date Comments [facility]NA Call 04/30/2021 Encounter Details Date Type Department Care Team Description 04/30/2021 Telephone Adult Medicine [address] [id number] Ricco Hoffmann MD [address] [place] [address] VNA Call Social History Tobacco Use Types Packs/Day Years Used Date Smoking Tobacco: Every Day Cigarettes 0.8 Smokeless Tobacco: Never Comments:approx 15 cigs hannah y Alcohol Use Standard Drinks/Week Comments No 0 (1 standard drink = 0.6 oz pur e alcohol) Sex Assigned at Date Recorded Not on file documented as of this encounter Miscellaneous Notes * Telephone Encounter - Kay Astorga L.P.N. - 04/30/2021 1:29 PM EDT JUANCARLOS Hoffmann Chi W calling to make us aware that pt is not answering phone calls nor returning messages, so havebeen unable to provide PT to pt * Telephone Encounter - Velma Canoan - 04/30/2021 1:13 PM EDT [facility]NA CALL Which [facility]NA office is calling? Ernestina Full name of caller: Bo Rutledge The caller is A Physical Therapist Is the caller at the patients home?: NO Reason for call: pt is not answering phone calls nor returning messages, so have been unable to provide PT to pt Does caller need an urgent call back? NO Was CONTACT Telephone # obtained above?: YES Fax #: n/a documented in this encounter Plan of Treatment Not on file documented as of this encounter Visit Diagnoses Not on filedocumented in this encounter Care Teams Oral Health Therapist Relationship Specialty Start Date End Date Ricco Hoffmann MD [address] [place] [address] PCP - General 08/15/08 documented as of this encounter
--- OUTSIDE RECORDS SUMMARY | 2025-07-09 15:25 | XMS_ITS | Encounter Summary ---
Author Organization [facility] Prior to 05/24/[address] [place] [address] Care Team Providers Care Automotive Detailer Name Role Phone Ricco Hoffmann MD Primary Care Provider [phone] Encounter Details Date Type Department Care Team Description 06/22/2020 Moss Picker Report Medical Records [address] [place] [address] Jaime Hodges MD Social History Tobacco Use Types Packs/Day [...] filedocumented in this encounter Care Teams Automotive Detailer Relationship Specialty Start Date End Date Ricco Hoffmann MD [address] [place] [address] PCP - General 08/15/08 documented as of this encounter
--- OUTSIDE RECORDS SUMMARY | 2025-07-09 15:25 | XMS_ITS | Encounter Summary ---
Author Organization [facility] Prior to 05/24/[address] [place] [address] Care Team Providers Care Turpentiner Name Role Phone Ricco Hoffmann MD Primary Care Provider [phone] Reason for Visit * Reason Onset Date Comments refill request 07/31/2015 Encounter Details Date Type Department Care Team Description 07/31/2015 Refill Adult Medicine [address] [address] Ricco Hoffmann MD [address] [place] [address] 00543 refill request Social History Tobacco Use Types Packs/Day Years Used Date Smoking Tobacco: Every Day Cigarettes 0.5 Comments:1/2 pack daily Alcohol Use Standard Drinks/Week Comments No 0 (1 standard drink = 0.6 oz pur e alcohol) Sex Assigned at Date Recorded Not on file documented as of this encounter Miscellaneous Notes * Telephone Encounter - Kyra Melo M.A - 08/04/2015 10:33 AM EST LEFT MESSAGE TO CALL BACK AND ASK FOR KYRA [phone] After today letter will be mailed for patient to book appointment. * Telephone Encounter - Kyra Melo M.A - 08/03/2015 1:30 PM EST LEFT MESSAGE TO CALL BACK AND ASK FOR KYRA [phone] * Telephone Encounter - Kyra Melo M.A - 07/31/2015 4:40 PM EST LEFT MESSAGE TO CALL BACK AND ASK FOR KYRA [phone] * Telephone Encounter - Marie Cortez L.P.N. - 07/31/2015 4:34 PM EST Last office visit was asking for refill but follow up isn't until 09/03/15. PCP advise. Component Value Date NA 143 08/16/2012 K 4.1 08/16/2012 CO2 27.8 08/16/2012 CL 107 08/16/2012 BUN 10 08/16/2012 CREAT 1.0 08/16/2012 GLU 62 08/16/2012 CA 9.3 08/16/2012 GFR >60 08/16/2012 * Telephone Encounter - Freddy Montalvo - 07/31/2015 3:12 PM EST Patient would like script to be: E-PRESCRIBED/FAXED TO PHARMACY WHEN WAS THE PATIENT'S LAST APPOINTMENT IN ADULT MEDICINE? 11/01/12 WHEN WAS THE LAST TIME THE PATIENT SAW THEIR PCP? Same as above Does patient have an upcoming appointment? Yes 09/03/15 (THE MEDICATION REQUESTED IS ON THE MED LIST ABOVE) All of the medications requested were on the CURRENT MEDS list Did you check the Pharmacy information above?: YES Patient wants: 30 -day supply Is this a mail order prescription request ? NO Patients current insurance carrier is: [place] / [place] / Product Type: MEDICARE [id number] documented in this encounter Plan of Treatment Not on file documented as of this encounter Visit Diagnoses Diagnosis Hypertension Unspecified essential hypertension Tobacco abuse Tobacco use disorder documented in this encounter Care Teams Turpentiner Relationship Specialty Start Date End Date Ricco Hoffmann MD [address] [place] [address] PCP - General 08/15/08 documented as of this encounter
--- OUTSIDE RECORDS SUMMARY | 2025-07-09 15:25 | XMS_ITS | Encounter Summary ---
Author Organization [facility] Prior to 05/24/[address] [place] [address] Care Team Providers Care Tool Setter Apprentice Name Role Phone Ricco Hoffmann MD Primary Care Provider [phone] Encounter Details Date Type Department Care Team Description 09/27/2013 Transfer Records Medical Records [address] [place] [address] Abstract, Provider Social History Tobacco Use Types [...] on filedocumented in this encounter Care Teams Tool Setter Apprentice Relationship Specialty Start Date End Date Ricco Hoffmann MD [address] [place] [address] PCP - General 08/15/08 documented as of this encounter
--- OUTSIDE RECORDS SUMMARY | 2025-07-09 15:25 | XMS_ITS | Encounter Summary ---
Author Organization [facility] Prior to 05/24/[address] [place] [address] Care Team Providers Care Call Center Operator Name Role Phone Ricco Hoffmann MD Primary Care Provider [phone] Encounter Details Date Type Department Care Team Description 04/28/2021 Home Health Certification Medical Records [address] [place] [address] Ernestina Prabhakar [address] [place] [address] Social History Tobacco Use Types Packs/Day Years [...] on filedocumented in this encounter Care Teams Call Center Operator Relationship Specialty Start Date End Date Ricco Hoffmann MD [address] [place] [address] [id number] PCP - General 08/15/08 documented as of this encounter
--- OUTSIDE RECORDS SUMMARY | 2025-07-09 15:25 | XMS_ITS | Encounter Summary ---
Author Organization [facility] Prior to 05/24/[address] [place] [address] Care Team Providers Care Ship Wirer Name Role Phone Ricco Hoffmann MD Primary Care Provider [phone] Reason for Visit * Reason Onset Date Comments Faxed Order 04/14/2021 [facility], [id number] Encounter Details Date Type Department Care Team Description 04/14/2021 Telephone Adult Medicine [address] [address] Ricco Hoffmann MD [address] [place] [address] Faxed Order ([facility], [id number]) Social History Tobacco Use Types Packs/Day Years Used Date Smoking Tobacco: Every Day Cigarettes 0.8 Smokeless Tobacco: Never Comments:approx 15 cigs hannah y Alcohol Use Standard Drinks/Week Comments No 0 (1 standard drink = 0.6 oz pur e alcohol) Sex Assigned at Date Recorded Not on file documented as of this encounter Miscellaneous Notes * Telephone Encounter - Nguyen Crawford - 04/14/2021 11:46 AM EDT Placed in doctors bin: [facility], [id number] Please Review, Sign & Fax when completed. documented in this encounter Plan of Treatment Not on file documented as of this encounter Visit Diagnoses Not on filedocumented in this encounter Care Teams Ship Wirer Relationship Specialty Start Date End Date Ricco Hoffmann MD [address] [place] [address] PCP - General 08/15/08 documented as of this encounter
--- OUTSIDE RECORDS SUMMARY | 2025-07-09 15:25 | XMS_ITS | Encounter Summary ---
Author Organization [facility] Prior to 05/24/[address] [place] [address] Care Team Providers Care Cell Coverer Name Role Phone Ricco Hoffmann MD Primary Care Provider [phone] Reason for Visit * Reason Onset Date Comments Faxed Order 04/02/2021 [facility], [id number] Encounter Details Date Type Department Care Team Description 04/02/2021 Telephone Adult Medicine [address] [address] Ricco Hoffmann MD [address] [place] [address] Faxed Order ([facility], [id number]) Social History Tobacco Use Types Packs/Day Years Used Date Smoking Tobacco: Every Day Cigarettes 0.8 Smokeless Tobacco: Never Comments:approx 15 cigs hannah y Alcohol Use Standard Drinks/Week Comments No 0 (1 standard drink = 0.6 oz pur e alcohol) Sex Assigned at Date Recorded Not on file documented as of this encounter Miscellaneous Notes * Telephone Encounter - Nguyen Crawford - 04/02/2021 11:20 AM EDT Placed in doctors bin: [facility], [id number] Please Review, Sign & Fax when completed. documented in this encounter Plan of Treatment Not on file documented as of this encounter Visit Diagnoses Not on filedocumented in this encounter Care Teams Cell Coverer Relationship Specialty Start Date End Date Ricco Hoffmann MD [address] [place] [address] PCP - General 08/15/08 documented as of this encounter
--- OUTSIDE RECORDS SUMMARY | 2025-07-09 15:25 | XMS_ITS | Encounter Summary ---
Author Organization [facility] Prior to 05/24/[address] [place] [address] Care Team Providers Care Assembler Fishing Floats Name Role Phone Ricco Hoffmann MD Primary Care Provider [phone] Encounter Details Date Type Department Care Team Description 11/01/2012 Orders Only Podiatry - [address] [address] Mannie Alfaro, DPJosh Dermatophytosis of nail (Primary Dx) Social History Tobacco Use Types Packs/Day Years Used Date Smoking Tobacco: Every Day Cigarettes 0.5 Comments:1/2 pack daily Alcohol Use Standard Drinks/Week Comments No 0 (1 standard drink = 0.6 oz pur e alcohol) Sex Assigned at Date Recorded Not on file documented as of this encounter Plan of Treatment Not on file documented as of this encounter Visit Diagnoses Diagnosis Dermatophytosis of nail- Primary documented in this encounter Care Teams Assembler Fishing Floats Relationship Specialty Start Date End Date Ricco Hoffmann MD [address] [place] [address] PCP - General 08/15/08 documented as of this encounter
--- OUTSIDE RECORDS SUMMARY | 2025-07-09 15:25 | XMS_ITS | Clinical Summary ---
Author Organization [facility] Prior to 05/24/[address] [place] [address] Care Team Providers Care Police Aide Name Role Phone Ricco Hoffmann MD Primary Care Provider [phone] Allergies Active Allergy Reactions Severity Noted Date Comments None 05/11/2009 Medications Medication Sig Dispensed Refills Start Date End Date Status Nutritional Supplements (Ensure Active) Liquid Take 1 Can by mouth daily. 100 mL 5 05/17/2023 Active amlodipine (NORVASC) 10 MG tablet TAKE 1 TABLET BY MOUTH EVERY DAY 90 Tablet 1 06/06/2023 Active cyclobenzaprine (FLEXERIL) 5 MG tablet TAKE 1 TABLET BY MOUTH THREE TIMES A DAY NEEDED FOR BODY ACHES 0 12/24/2023 Active acetaminophen (TYLENOL) 500 MG tablet Take 1-2 Tablets by mouth. 0 03/15/2021 Active gabapentin (NEURONTIN) 300 MG capsule TAKE 1 CAPSULE BY MOUTH TWICE A DAY 60 Capsule 5 04/03/2024 Active ondansetron (ZOFRAN) 4 MG tablet TAKE 1 TABLET BY MOUTH TWICE A DAY NEEDED FOR NAUSEA 0 03/15/2024 Active pramipexole (MIRAPEX) 0.25 MG tablet TAKE 1 TABLET BY MOUTH TWICE A DAY NEEDED FOR RESTLESS LEGS 0 02/05/2024 Active trazodone (DESYREL) 50 MG tablet TAKE 1 TABLET BY MOUTH EVERYDAY AT BEDTIME 0 03/15/2024 Active methadone 10 MG/5ML solution Take 22.5 mL by mouth daily. 0 Active oxyCODONE HCl 10 MG TabIndications:Statu s post total knee replacement, right Take 1 Tablet by mouth every 4 hours as needed (severe pain). 30 Tablet 0 05/22/2024 Active Active Problems Problem Noted Date Status post total right knee replacement 05/24/2024 Other chronic postprocedural pain 2023 Primary osteoarthritis of right knee Neck pain with history of cervical spina l surgery 03/08/2021 Postlaminectomy syndrome, not elsewhere classified 03/08/2021 [facility] compl of internal fixation device o f oth bones, subs 03/08/2021 Other chronic pain 03/08/2021 Pseudoarthrosis of cervical spine 2020 Nicotine dependence, cigarettes, uncompl icated 07/24/2020 Neuropathy, arm, left 06/05/2019 Liver fibrosis 08/06/2018 Hepatic fibrosis 08/06/2018 Cortical cataract of left eye 08/20/2014 Nuclear sclerosis 08/20/2014 Hypertension 06/11/2012 Hemorrhoids 05/11/2009 History of spinal fusion 09/03/2008 Chronic back pain 08/20/2008 Overview: Hx spinal fusion Immunizations Name Administration Dates Next Due Covid-19 Moderna Omicron (PT Reported)- Spikevax 05/20/2023 Hepatitis B > 19yrs 07/26/2012,06/20/2012 Influenza (> 6 Months) 04/16/2024,05/20/2023, Tdap 09/03/2008 Family History Medical History Relation Name Comments No Known Problems Brother 1 No Known Problems Brother 2 No Known Problems Brother 3 No Known Problems Brother 4 No Known Problems Daughter No Known Problems Father No Known Problems Mother No Known Problems Other No Known Problems Sister No Known Problems Son Autoimmune Negative Hx Blindness Negative Hx Cataract, glauc [place], macular degeneration, strabismus CA Breast Negative Hx CA Colon Negative Hx CA Prostate Negative Hx CAD Negative Hx CHF Negative Hx Cholesterol Level Negative Hx Diabetes Negative Hx Hypertension Negative Hx IA Negative Hx Mental Disorder Negative Hx Sleep Apnea Negative Hx Thyroid Disorder Negative Hx Relation Name Status Comments Brother 1 Alive Brother 2 Alive HTN Brother 3 Brother 4 Daughter Father Mother Alive HTN Other Sister Alive HTN Son Social History Tobacco Use Types Packs/Day Years Used Date Smoking Tobacco: Every Day Cigarettes 0.8 Smokeless Tobacco: Never Tobacco Cessation:Ready to Q uit: No; Counseling Given: No Comments:approx 15 cigs daily Alcohol Use Standard Drinks/Week Comments No 0 (1 standard drink = 0.6 oz pur e alcohol) Sex Assigned at Date Recorded Not on file Last Filed Vital Signs Vital Sign Reading Time Taken Comments Blood Pressure 142/86 04/25/2024 1:46 PM EDT Pulse 71 04/25/2024 1:46 PM EDT Temperature 36.6 C (97.9 F) 04/25/2024 1:46 PM EDT Respiratory Rate 22 01/10/2024 8:21 AM EDT Oxygen Saturation 95% 04/25/2024 1:46 PM EDT Inhaled Oxygen Concentration - - Weight 84.8 kg (187 lb) 04/25/2024 1:46 PM EDT Height 185.4 cm (6' 1 ) 04/25/2024 1:46 PM EDT Body Mass Index 24.67 04/25/2024 1:46 PM EDT Plan of Treatment Health Maintenance Due Date Last Done Comments HEPATITIS C SCREENING 1979 PNEUMOCOCCAL VACCINE FOR HIG H RISK PATIENTS (#1) 1980 SHINGLES VACCINE (1 of 2) 2011 DEPRESSION SCREEN 10/08/2016 10/09/2015 DTAP/TDAP/TD (2 - Td or Tdap) 09/03/2018 09/03/2008 COLON CANCER SCREENING 07/25/2022 07/25/2012 Covid-19 Vaccine (2 - 2022-2 4 season) 2025 05/20/2023 INFLUENZA (#1) 2025 04/16/2024, 04/24, 06/20/2012 TOBACCO CHECK/ADVISE 04/25/2026 04/25/2024, 04/16/2024, 04/03/2024, Additional history exists CHOLESTEROL SCREENING 02/27/2029 02/28/2024 , 05/17/2023, 03/27/2020, Additional history exists Advance Directives For more information, please contact: [phone] Documents on File Type Date Recorded Patient Sales Operations Specialist Expl [facility] Proxy 04/30/2024 4:50 PM [facility] PROXY Care Teams Police Aide Relationship Specialty Start Date End Date Ricco Hoffmann MD [address] [place] [address] PCP - General 08/15/08
--- OUTSIDE RECORDS SUMMARY | 2025-07-09 15:25 | XMS_ITS | Encounter Summary ---
Author Organization Formerly [facility] Prior to 05/24/[address] [place] [address] Care Team Providers Care Skin Care Therapist Name Role Phone Ricco Hoffmann MD Primary Care Provider [phone] Reason for Visit * Reason Onset Date Comments Faxed Order 04/20/2021 [facility], [id number] Encounter Details Date Type Department Care Team Description 04/20/2021 Telephone Adult Medicine [address] [address] Ricco Hoffmann MD [address] [place] [phone] Faxed Order ([facility], [id number]) Social History Tobacco Use Types Packs/Day Years Used Date Smoking Tobacco: Every Day Cigarettes 0.8 Smokeless Tobacco: Never Comments:approx 15 cigs hannah y Alcohol Use Standard Drinks/Week Comments No 0 (1 standard drink = 0.6 oz pur e alcohol) Sex Assigned at Date Recorded Not on file documented as of this encounter Miscellaneous Notes * Telephone Encounter - Nguyen Crawford - 04/20/2021 10:54 AM EDT Placed in doctors bin: [facility] [id number] Please Review, Sign & Fax when completed. documented in this encounter Plan of Treatment Not on file documented as of this encounter Visit Diagnoses Not on filedocumented in this encounter Care Teams Skin Care Therapist Relationship Specialty Start Date End Date Ricco Hoffmann MD [address] [place] [phone] PCP - General 08/15/08 documented as of this encounter
--- OUTSIDE RECORDS SUMMARY | 2025-07-09 15:25 | XMS_ITS | Encounter Summary ---
Author Organization [facility] Prior to 05/24/[address] [place] [address] Care Team Providers Care Delivery Representative Name Role Phone Ricco Hoffmann MD Primary Care Provider [phone] Reason for Visit * Reason Onset Date Comments Faxed Order 03/31/2021 [facility], [id number] Encounter Details Date Type Department Care Team Description 03/31/2021 Telephone Adult Medicine [address] [address] Ricco Hoffmann MD [address] [place] [address] [facility], [id number]) Social History Tobacco Use Types Packs/Day Years Used Date Smoking Tobacco: Every Day Cigarettes 0.8 Smokeless Tobacco: Never Comments:approx 15 cigs hannah y Alcohol Use Standard Drinks/Week Comments No 0 (1 standard drink = 0.6 oz pur e alcohol) Sex Assigned at Date Recorded Not on file documented as of this encounter Miscellaneous Notes * Telephone Encounter - Nguyen Yvette - 03/31/2021 12:02 PM EDT Placed in doctors bin:[facility], [id number] Please Review, Sign & Fax when completed. documented in this encounter Plan of Treatment Not on file documented as of this encounter Visit Diagnoses Not on filedocumented in this encounter Care Teams Delivery Representative Relationship Specialty Start Date End Date Ricco Hoffmann MD [address] [place] [phone] PCP - General 08/15/08 documented as of this encounter
--- OUTSIDE RECORDS SUMMARY | 2025-07-09 15:25 | XMS_ITS | Encounter Summary ---
Author Organization [facility] Prior to 05/24/[address] [place] [address] Care Team Providers Care Nozzle Cement Sprayer Helper Name Role Phone Ricco Hoffmann MD Primary Care Provider [phone] Encounter Details Date Type Department Care Team Description 10/22/2020 Human Service Specialist Report Medical Records [address] [place] [address] Jaime Hodges MD Social History Tobacco Use [...] on filedocumented in this encounter Care Teams Nozzle Cement Sprayer Helper Relationship Specialty Start Date End Date Ricco Hoffmann MD [address] [place] [address] [phone] PCP - General 08/15/08 documented as of this encounter
--- OUTSIDE RECORDS SUMMARY | 2025-07-09 15:25 | XMS_ITS | Encounter Summary ---
Author Organization [facility] Prior to 05/24/[address] [place] [address] Care Team Providers Care Refiner Operator Name Role Phone Ricco Hoffmann MD Primary Care Provider [phone] Encounter Details Date Type Department Care Team Description 03/08/2021 Hospital Medical Records [address] [place] [id number] [place] [address], [facility] Social History Tobacco Use Types Packs/Day Years [...] on filedocumented in this encounter Care Teams Refiner Operator Relationship Specialty Start Date End Date Ricco Hoffmann MD [address] [place] [address] PCP - General 08/15/08 documented as of this encounter
--- OUTSIDE RECORDS SUMMARY | 2025-07-09 15:25 | XMS_ITS | Encounter Summary ---
Author Organization [facility] Prior to 05/24/[address] [place] [address] Care Team Providers Care Strand And Binder Controller Name Role Phone Ricco Hoffmann MD Primary Care Provider [phone] Reason for Visit * Reason Onset Date Comments [facility]ed [facility] [id number] Encounter Details Date Type Department Care Team Description 03/23/2021 Telephone Adult Medicine [address] [address] Ricco Hoffmann MD [address] [place] [phone] Faxed Order ([facility], [id number]) Social History Tobacco Use Types Packs/Day Years Used Date Smoking Tobacco: Every Day Cigarettes 0.8 Smokeless Tobacco: Never Comments:approx 15 cigs hannah y Alcohol Use Standard Drinks/Week Comments No 0 (1 standard drink = 0.6 oz pur e alcohol) Sex Assigned at Date Recorded Not on file documented as of this encounter Miscellaneous Notes * Telephone Encounter - Nguyen Crawford - 03/23/2021 11:04 AM EDT Placed in doctors bin: [facility], [id number] Please Review, Sign & Fax when completed. documented in this encounter Plan of Treatment Not on file documented as of this encounter Visit Diagnoses Not on filedocumented in this encounter Care Teams Strand And Binder Controller Relationship Specialty Start Date End Date Ricco Hoffmann MD [address] [place] [address] PCP - General 08/15/08 documented as of this encounter
--- OUTSIDE RECORDS SUMMARY | 2025-07-09 15:25 | XMS_ITS | Encounter Summary ---
Author Organization [facility] Prior to 05/24/[address] [place] [address] Care Team Providers Care Automotive Parts Interpreter Name Role Phone Ricco Hoffmann MD Primary Care Provider [phone] Encounter Details Date Type Department Care Team Description 07/07/2020 Commutator V Ring Assembler Report Medical Records [address] [place] [address] Jaime Hodges MD Social History Tobacco Use Types Packs/Day Years Used Date Smoking Tobacco: Every Day Cigarettes 0.8 Smokeless Tobacco: Never Comments:approx 15 cigs hannah y Alcohol Use Standard Drinks/Week Comments No 0 (1 standard drink = 0.6 oz pur e alcohol) Sex Assigned at Date Recorded Not on file COVID-19 Exposure Response Date Recorded In the last month, have you been in contact with someone who was confirmed or suspected to have Coronavirus / COVID-19? No / Unsure 06/30/2020 2:03 PM EST documented as of this encounter Plan of Treatment Not on file documented as of this encounter Visit Diagnoses Not on filedocumented in this encounter Care Teams Automotive Parts Interpreter Relationship Specialty Start Date End Date Ricco Hoffmann MD [address] [place] [phone] PCP - General 08/15/08 documented as of this encounter
--- OUTSIDE RECORDS SUMMARY | 2025-07-09 15:25 | XMS_ITS | Encounter Summary ---
Author Organization [facility] Prior to 05/24/[address] [place] [address] Care Team Providers Care Placement Coordinator Name Role Phone Ricco Hoffmann MD Primary Care Provider [phone] Encounter Details Date Type Department Care Team Description 03/12/2021 Hospital Medical Records [address] [place] [phone] [place] [address], [facility] Social History Tobacco Use Types Packs/Day Years [...] on filedocumented in this encounter Care Teams Placement Coordinator Relationship Specialty Start Date End Date Ricco Hoffmann MD [address] [place] [address] [phone] PCP - General 08/15/08 documented as of this encounter
[2025-07-09 15:32] LABS: Total Protein Urine Random 33 mg/dL (<12)
[2025-07-10 04:49] LABS: HBS Num1 26.67 mIU/mL (0-7.99); HBc Num1 6.07 S/CO (0.00-0.79); ~HepC Num1 10.72 S/CO (0.00-0.79); ~Hepatitis B Surface Antibody REACTIVE (Nonreactive); ~Hepatitis C Antibody Reactive (Nonreactive)
[2025-07-10 06:15] LABS: HBc Num2 5.96 S/CO; HBc Num3 5.96 S/CO
[2025-07-10 13:38] LABS: HBsAGNum1 0.27 S/CO (0.00-0.99); Hepatitis B Surface Antigen Negative (Negative)
[2025-07-10 14:19] LABS: Anti Glomerular Basement Memb <1.0 AI
[2025-07-11 06:49] LABS: Hepatitis B Core Antibody IgM NON-REACTIVE (NON-REACTIVE)
== END 2025-07-09 11:02 | disposition home or self-care (01) ==
LOC: HO.HKASLDS 11:01
PROVIDERS: PCP Internal Medicine; Referring Provider Internal Medicine; Visit Provider Internal Medicine Hypertension Specialist
DX: I12.9 Hypertensive chronic kidney disease with stage 1 through stage 4 chronic kidney disease, or unspecified chronic kidney disease (principal); N18.30 Chronic kidney disease, stage 3 unspecified; B19.20 Unspecified viral hepatitis C without hepatic coma; Z01.84 Encounter for antibody response examination
CPT/HCPCS: 36415; 80053; 81001; 82570; 83520; 84156; 84165; 85025; 86036; 86038; 86160; 86704; 86705; 86706; 86803; 87340; 87522; 99202